=== PATIENT | male | born 1990 ===

== ENCOUNTER 2020-11-13 02:28 | Emergency (ER) | payer OTHER, SELFPAY ==
--- NOTE | 2020-11-13 06:12 | ER ---
Nurse's Notes [facility] Name: Phoenix Woo Age: 30 yrs Sex: Male : 1990 Arrival Date: 11/13/2020 Time: 02:30 Bed 23 Private MD: Diagnosis: Unspecified injury of head;Cerebral contusion with possible intraparenchymal hemorrhage;Other specified sprain of left wrist;Contusion of right knee Presentation: 11/13 02:46 Chief complaint: Patient states: he fell from the second floor to the first floor while bb trying to climb down landing on his face with a momentary LOC he is c/o left wrist pain, right knee pain and a laceration to his lower lip. Coronavirus screen: At this time, the client does not indicate any symptoms associated with coronavirus-19. Ebola Screen: No symptoms or risks identified at this time. Initial Sepsis Screen: Does the patient meet any 2 criteria? No. Patient's initial sepsis screen is negative. Does the patient have a suspected source of infection? No. Patient's initial sepsis screen is negative. Risk Assessment: Do you want to hurt yourself or someone else? Patient reports no desire to harm self or others. Onset of symptoms was November 12, 2020. 02:46 Method Of Arrival: Law Enforcement: [place] [employer] bb 02:46 Acuity: ZACH 4 bb Triage Assessment: 02:49 General: Appears in no apparent distress. uncomfortable, Behavior is calm, cooperative. bb Pain: Complains of pain in left wrist Pain currently is 10 out of 10 on a pain scale. Neuro: Level of Consciousness is awake, alert, obeys commands, Oriented to person, place, time, situation. Cardiovascular: No deficits noted. Respiratory: Respiratory effort is even, unlabored, Respiratory pattern is regular. GI: No signs and/or symptoms were reported involving the gastrointestinal system. Derm: Skin is pink, warm \T\ dry. Wound noted lower lip. Musculoskeletal: Circulation, motion, and sensation intact. Reports pain in left wrist and right knee. Historical: - Allergies: 02:49 No Known Allergies; bb - Home Meds: 02:49 Unable to obtain [Active]; bb - PMHx: 02:49 Hypertension; bb - PSHx: 02:49 None; bb - Immunization history:: Adult Immunizations unknown. - Social history:: Smoking status: Patient reports the use of cigarette tobacco products. - Family history:: not pertinent. - Hospitalizations: : No recent hospitalization is reported. Screenin:57 Abuse screen: Denies threats or abuse. Nutritional screening: No deficits noted. bb Tuberculosis screening: No symptoms or risk factors identified. Fall Risk None identified. Assessment: 03:57 Reassessment: No changes from previously documented assessment. see triage assessment. bb 05:57 Reassessment: Patient is alert, oriented x 3, equal unlabored respirations, skin bb warm/dry/pink. pt resting quietly, in custody of [facility] guards awaiting disposition. 07:20 Reassessment: gave report to Parish Cheek RN for [facility] Managed Care. bb 07:26 Reassessment: Pt has no complaints at this time. Pt ambulated with steady gait to restroom. Two custodial guards remain at bedside. General: Appears in no apparent distress. comfortable, Behavior is calm, cooperative. Neuro: Level of Consciousness is awake, alert, obeys commands, Oriented to person, place, time, situation, Menu Planner are equal bilaterally Moves all extremities. Full function Gait is steady, Speech is normal, Facial symmetry appears normal, Pupils are PERRLA, Denies weakness blurred vision dizziness, numbness headache photophobia. Cardiovascular: Capillary refill < 3 seconds is brisk in bilateral fingers Patient's skin is warm and dry. Respiratory: Airway is patent Respiratory effort is even, unlabored, Respiratory pattern is regular, symmetrical. GI: No signs and/or symptoms were reported involving the gastrointestinal system. Patient currently denies abdominal pain, diarrhea, nausea, vomiting. : No signs and/or symptoms were reported regarding the genitourinary system. EENT: Nares are clear Oral mucosa is moist. Derm: Skin is intact, is healthy with good turgor, Skin is pink, warm \T\ dry. normal. Musculoskeletal: Circulation, motion, and sensation intact. Range of motion: intact in all extremities, Swelling absent. 08:35 Reassessment: care handed off to [facility]. Vital Signs: 02:46 BP 130 / 87; Pulse 64; Resp 16 S; Temp 98.5(O); Pulse Ox 100% on R/A; Weight 83.01 kg bb (R); Height 5 ft. 6 in. (167.64 cm) (R); Pain 10/10; 05:58 BP 112 / 74; Pulse 57; Resp 16 S; Pulse Ox 99% on R/A; bb 07:44 BP 142 / 91; Pulse 82; Resp 16; Pulse Ox 100% on R/A; ss 02:46 Body Mass Index 29.54 (83.01 kg, 167.64 cm) bb ED Course: 02:30 Patient arrived in ED. bp1 02:48 Triage completed. bb 02:49 Arm band placed on Patient notified of wait time. bb 03:52 Talat Carver MD is Attending Physician. rn 03:57 Griselda Mesa RN is Primary Nurse. bb 03:57 Patient has correct armband on for positive identification. Call light in reach. [facility] bb officers at bedside. 04:15 Inserted saline lock: 20 gauge in right antecubital area, using aseptic technique. bb 04:42 CT Traumagram (Head C Spine CAP W Con) In Process Unspecified. EDMS 05:06 XRAY Knee RIGHT 3 view In Process Unspecified. EDMS 05:10 XRAY Wrist LEFT 3 view In Process Unspecified. EDMS 06:33 initiated a transfer with Itzel from [facility]. mw2 07:21 Report given to Celena CANDELARIO. bb 07:21 No provider procedures requiring assistance completed. Patient transferred, IV remains bb in place. 07:23 pt accepted in transfer to [facility] by dr Rawls, admin approval given by alejandro Robbins. Administered Medications: No medications were administered Outcome: 06:11 ER care complete, transfer ordered by . rn 07:21 Instructed on the need for transfer. bb 08:35 Transferred by ground EMS to [facility], Transfer form ss completed. X-rays sent w/ patient. 08:35 Condition: good 08:36 Patient left the ED. ss Signatures: Dispatcher [employer] EDMS Vanesa Taylor Brenda, RN RN Talat Avalos MD MD rn Smirch, Shelby, RN RN Armando Fernandez mw2 Jenn Gilbert bp1
--- NOTE | 2020-11-13 06:13 | EDPHYS ---
Physician Documentation [facility] Name: Phoenix Woo Age: 30 yrs Sex: Male : 1990 Arrival Date: 11/13/2020 Time: 02:30 Bed 23 Private MD: ED Physician Talat Carver HPI: 11/13 04:56 This 30 yrs old Other Male presents to ER via Law Enforcement with complaints of Fall rn Injury. 04:56 Details of fall: The patient fell from a height. Onset: The symptoms/episode rn began/occurred just prior to arrival. Associated injuries: The patient sustained injury to the head, right knee, left wrist. Severity of symptoms: At their worst the symptoms were mild, in the emergency department the symptoms are unchanged. The patient has not experienced similar symptoms in the past. Reports fall from height, 8-10 ft, states pain to head/right knee/left wrist, unknown if LOC. Not on blood thinners. . Historical: - Allergies: 02:49 No Known Allergies; bb - Home Meds: 02:49 Unable to obtain [Active]; bb - PMHx: 02:49 Hypertension; bb - PSHx: 02:49 None; bb - Immunization history:: Adult Immunizations unknown. - Social history:: Smoking status: Patient reports the use of cigarette tobacco products. - Family history:: not pertinent. - Hospitalizations: : No recent hospitalization is reported. ROS: 04:56 Constitutional: Negative for fever, chills, and weight loss, Eyes: Negative for injury, rn pain, redness, and discharge, Neck: Negative for injury, pain, and swelling, Cardiovascular: Negative for chest pain, palpitations, and edema, Respiratory: Negative for shortness of breath, cough, wheezing, and pleuritic chest pain, Abdomen/GI: Negative for abdominal pain, nausea, vomiting, diarrhea, and constipation, Back: Negative for injury and pain, MS/Extremity: + right knee and left wrist pain. Skin: Negative for injury, rash, and discoloration, Neuro: + mild headache. Exam: 04:56 Constitutional: This is a well developed, well nourished patient who is awake, alert, rn and in no acute distress. Head/Face: Normocephalic, no scalp hematoma. Eyes: Pupils equal round and reactive to light, extra-ocular motions intact. Lids and lashes normal. Conjunctiva and sclera are non-icteric and not injected. Cornea within normal limits. Periorbital areas with no swelling, redness, or edema. ENT: No intraoral laceration, + small cut midline lower lip, no active bleeding. Neck: No midline tenderness Cardiovascular: Regular rate and rhythm. No pulse deficits. Respiratory: Speaking full sentences, unlabored. No increased work of breathing, no retractions or nasal flaring. Abdomen/GI: soft, non-tender Back: No spinal tenderness. No costovertebral tenderness. Full range of motion. MS/ Extremity: Pulses equal, no cyanosis. Neurovascular intact. + mild tenderness and painful ROM right knee. + swelling and tenderness left distal wrist, no open wounds. Neuro: Awake and alert, GCS 15, oriented to person, place, time, and situation. Cranial nerves II-XII grossly intact. Motor strength 5/5 in all extremities. Sensory grossly intact. Vital Signs: 02:46 BP 130 / 87; Pulse 64; Resp 16 S; Temp 98.5(O); Pulse Ox 100% on R/A; Weight 83.01 kg bb (R); Height 5 ft. 6 in. (167.64 cm) (R); Pain 10/10; 05:58 BP 112 / 74; Pulse 57; Resp 16 S; Pulse Ox 99% on R/A; bb 07:44 BP 142 / 91; Pulse 82; Resp 16; Pulse Ox 100% on R/A; ss 02:46 Body Mass Index 29.54 (83.01 kg, 167.64 cm) bb MDM: 03:52 Patient medically screened. rn 06:08 Differential diagnosis: abrasion, closed head injury, contusion, fracture, sprain, rn strain. Data reviewed: vital signs, nurses notes, radiologic studies, CT scan, plain films, and as a result, I will admit patient. Counseling: I had a detailed discussion with the patient and/or guardian regarding: the historical points, exam findings, and any diagnostic results supporting the discharge/admit diagnosis, lab results, radiology results, the need to transfer to another facility, [facility] does not immediately have the required specialist. ED course: Pt with neg plain films of knee/wrist. CT head shows small hyperdensities left frontal lobe and cannot exclude cerebral contusion vs small intraparenchymal hemorrhage. Will have to transfer to [email or web address] as he is inmate for repeat imaging and observation for head injury.. 11/13 08:33 Order name: SARS-COV-2 RT PCR EDMS 11/13 03:53 Order name: CT Traumagram (Head C Spine CAP W Con) rn 11/13 03:53 Order name: XRAY Wrist LEFT 3 view rn 11/13 03:53 Order name: XRAY Knee RIGHT 3 view rn Administered Medications: No medications were administered Disposition: 11/13/20 06:11 Transfer ordered to [facility] [[email or web address]System. Diagnosis are Unspecified injury of head, Cerebral contusion with possible intraparenchymal hemorrhage, Other specified sprain of left wrist, Contusion of right knee. - Reason for transfer: Higher level of care. - Accepting physician is . - Condition is Stable. - Problem is new. - Symptoms have improved. Signatures: Dispatcher [employer] [facility] Griselda Mesa RN RN bb Nieto, Roman, MD MD rn Smirch, Shelby, RN RN ss Corrections: (The following items were deleted from the chart) 07:52 07:20 CORONAVIRUS+MR.LAB.BRZ ordered. [facility] EDMS 08:36 06:11 11/13/2020 06:11 Transfer ordered to [facility] [[email or web address]System. Diagnosis is Unspecified injury ss of head; Cerebral contusion with possible intraparenchymal hemorrhage; Other specified sprain of left wrist; Contusion of right knee. Reason for transfer: Higher level of care. Accepting physician is . Condition is Stable. Problem is new. Symptoms have improved. rn
[2020-11-13 08:43] VITALS: TEMP 98.5
[2020-11-13 08:46] VITALS: BP 142/91; O2SAT 100
--- NOTE | 2020-11-13 10:38 | RAD REPORT ---
EXAM DESCRIPTION: CT - Head C Spine Cap W Con - 11/13/2020 6:20 am ADDENDUM #1 THIS REPORT CONTAINS FINDINGS THAT MAY BE CRITICAL TO PATIENT CARE: The findings were verbally discu ssed via telephone conference with Dr. Talat Carver by Dr. Lexa Lindo on 11/13/2020 5:41 AM CDT .The results were acknowledged and understood. Electronically signed by: Lexa Lindo MD 11/13/2020 6:01 AM CDT End of Addendum EXAM DESCRIPTION: CT Head and Cervical Spine Without Intravenous Contrast CLINICAL HISTORY: The patient is 30 years old and is Male; fall, 10 feet, hit head TECHNIQUE: Axial computed tomography images of the head/brain and cervical spine without intravenous contrast. Sagittal and coronal reformatted images were created and reviewed. This CT exam was pe rformed using one or more of the following dose reduction techniques: automated exposure control, a djustment of the mA and/or kV according to patient size, and/or use of iterative reconstruction techn ique. COMPARISON: No relevant prior studies available. FINDINGS: Limitations: Exam limited due to technique. Brain: Tiny hyperdensities in the left frontal lobe. No significant white matter disease. Ventricles: Unremarkable. No ventriculomegaly. Skull: No acute fracture. Sinuses: Unremarkable as visualized. No acute sinusitis. Mastoid air cells: Unremarkable as visualized. No mastoid effusion. Vertebrae: No acute cervical spine fracture or subluxation. Discs/spinal canal/neural foramina: No acute findings. No spinal canal stenosis. Soft tissues: Unremarkable. * A single impression for all exams can be found at the end of this report EXAM DESCRIPTION: CT Chest, Abdomen and Pelvis With Intravenous Contrast CLINICAL HISTORY: The patient is 30 years old and is Male; fall, 10 feet, hit head TECHNIQUE: Axial computed tomography images of the chest, abdomen and pelvis with intravenous contra st. Sagittal and coronal reformatted images were created and reviewed. This CT exam was performed using one or more of the following dose reduction techniques: automated exposure control, adjustme nt of the mA and/or kV according to patient size, and/or use of iterative reconstruction technique. COMPARISON: No relevant prior studies available. FINDINGS: Artifacts: Artifact limiting evaluation. CHEST: Lungs: Unremarkable. No mass. No consolidation. Pleural space: Unremarkable. No significant effusion. No pneumothorax. Heart: Unremarkable. No cardiomegaly. No significant pericardial effusion. ABDOMEN: Liver: Unremarkable. No mass. Gallbladder and bile ducts: Unremarkable. No calcified stones. No ductal dilation. Pancreas: Unremarkable. No ductal dilation. No mass. Spleen: Unremarkable. No splenomegaly. Adrenals: Unremarkable. No mass. Kidneys and ureters: Unremarkable. No hydronephrosis. No solid mass. Stomach and bowel: Unremarkable. No obstruction. No mucosal thickening. PELVIS: Appendix: No findings to suggest acute appendicitis. Bladder: Unremarkable. No mass. Reproductive: Unremarkable as visualized. CHEST, ABDOMEN and PELVIS: Intraperitoneal space: Unremarkable. No significant fluid collection. No free air. Bones/joints: Unremarkable. No acute fracture. No dislocation. Soft tissues: Unremarkable. Vasculature: Unremarkable. No aortic aneurysm. Lymph nodes: Unremarkable. No enlarged lymph nodes. * A single impression for all exams can be found at the end of this report IMPRESSION: CT Head and Cervical Spine Without Intravenous Contrast: 1. Tiny hyperdensities in the left frontal lobe. Consider short interval follow-up imaging (4-6 cruz rs) to exclude parenchymal contusion / intraparenchymal hemorrhage in the setting of trauma. 2. No acute cervical spine fracture or subluxation. CT Chest, Abdomen and Pelvis With Intravenous Contrast: No acute findings in the chest, abdomen or pelvis. Electronically signed by: Lexa Lindo MD 11/13/2020 5:39 AM CDT Due to temporary technical issues with the PACS/Fluency reporting system, reports are being signed by the in house radiologist without review as a courtesy to ensure prompt reporting. The interpreting r adiologist is fully responsible for the content of the report.
--- NOTE | 2020-11-13 11:12 | RAD REPORT ---
EXAM DESCRIPTION: RAD - Wrist Left 3 View - 11/13/2020 5:10 am CLINICAL HISTORY: The patient is 30 years old and is Male; PAIN after fall TECHNIQUE: Three views of the left wrist. COMPARISON: No relevant prior studies available. FINDINGS: Bones/joints: Unremarkable. No acute fracture. No dislocation. Soft tissues: Unremarkable. No radiopaque foreign body. IMPRESSION: No acute findings. Electronically signed by: Ramona Henry MD 11/13/2020 5:46 AM CDT Due to temporary technical issues with the PACS/Fluency reporting system, reports are being signed by the in house radiologist without review as a courtesy to ensure prompt reporting. The interpreting r adiologist is fully responsible for the content of the report.
--- NOTE | 2020-11-13 11:14 | RAD REPORT ---
EXAM DESCRIPTION: RAD - Knee Right 3 View - 11/13/2020 5:06 am CLINICAL HISTORY: The patient is 30 years old and is Male; PAIN after fall TECHNIQUE: Three views of the right knee. COMPARISON: No relevant prior studies available. FINDINGS: Bones/joints: Unremarkable. No acute fracture. No dislocation. Soft tissues: Unremarkable. IMPRESSION: No acute findings. Electronically signed by: Ramona Henry MD 11/13/2020 5:44 AM CDT Due to temporary technical issues with the PACS/Fluency reporting system, reports are being signed by the in house radiologist without review as a courtesy to ensure prompt reporting. The interpreting r adiologist is fully responsible for the content of the report.
== END 2020-11-13 08:36 | disposition short-term general hospital (02) ==
LOC: ER 02:28
DX: S06.320A Contusion and laceration of left cerebrum without loss of consciousness, initial encounter (principal); S63.592A Other specified sprain of left wrist, initial encounter; S80.01XA Contusion of right knee, initial encounter; W18.39XA Other fall on same level, initial encounter; Z20.822 Contact with and (suspected) exposure to COVID-19; Z72.0 Tobacco use; I10 Essential (primary) hypertension
CPT/HCPCS: 70450; 72125; 71260; 74177; 73110; 73562; U0003; Q9967; 99285